=== PATIENT | female | born 1940 | race African-American/Black ===

== ENCOUNTER → 2018-01-20 | Outpatient (REF) | payer MEDICARE, BC ==
[~2018-01-20] MED LIST: ACYCLOVIR800 MG PO; ADLT ASA LOW81 MG PO; AFEDITAB30 MG PO; ALDACTONE25 MG PO; AMARYL4 MG PO; APRESOLINE50 MG PO; CATAPRES0.2 MG PO; CLONIDINE0.1 MG PO; CLONIDINE0.1 MG/21 TD; CLONIDINE0.1 MG/24 TD; COZAAR100 MG PO; DOXAZOSIN2 M1 PO; FLUARIX QUADRIV1 INJ IM; FLULAVAL IM; FLUZONE SPLT1 M1 IM; FUROSEMIDE40 MG PO; HYDRALAZINE50 MG PO; LANTUS SOLOSTAR SC; LANTUS100 MG/ML SC; LASIX 40 MG TAB40 MG PO; LASIX 40 MG40 MG/TAB PO; LORTAB 5/3255 MG PO; LYRICA75 MG PO; MAXZIDE PO; MAXZIDE-2537.5 MG/TA; MEDDOSEPAK PO; METFORMIN500 M1 PO; METOPROL TAR100 M1 PO; METOPROL TAR100 MG PO; MIRAPEX0.5 MG PO; NIFEDICAL XL60 MG PO; NIFEDIPINE90 MG PO; POT CHLORIDE10 ME1 PO; PRAVASTATIN40 MG PO; PROCARDIA XL30 MG PO; PROCARDIA XL60 MG PO; TEMAZEPAM15 MG PO; TRAMADOL HCL50 MG PO; [UNRECOGNIZED DRUG - OTHER] SC
[2018-01-20 11:07] LABS: HEMATOCRIT 35.1 % (37.0-47.0)
[2018-01-20 11:23] LABS: ALBUMIN 3.6 g/dL (3.2-5.0); CREATININE 1.6 mg/dL (0.5-1.0); MAGNESIUM 1.7 mg/dL (1.6-2.3); POTASSIUM 3.9 mmol/l (3.5-5.1)
== END | disposition home or self-care (01) ==
LOC: LAB 09:51
PROVIDERS: ATTEND Internal Medicine
DX: N18.3 Chronic kidney disease, stage 3 (moderate) (principal); E11.22 Type 2 diabetes mellitus with diabetic chronic kidney disease; E55.9 Vitamin D deficiency, unspecified; D63.1 Anemia in chronic kidney disease

== ENCOUNTER → 2018-06-12 | Outpatient (REF) | payer MEDICARE, BC ==
[2018-06-12 10:59] LABS: HEMATOCRIT 36.8 % (37.0-47.0); HEMOGLOBIN 11.6 g/dl (12.0-16.0); IMMATURE GRANULOCYTES 0.3 % (0.0-5.0); MEAN CELL VOLUME 84.2 fL CALC (80.0-100.0); MEAN CORPUSCULAR HGB 26.5 pG CALC (26.0-32.0); MEAN CORPUSCULAR HGB CONC 31.5 g/L CALC (32.0-36.0); NEUT# 3.44 thou/uL (2.00-7.15); RED BLOOD COUNT 4.37 mill/uL (4.20-5.60); RED CELL DISTRI WIDTH 14.5 % (11.5-15.5)
[2018-06-12 11:23] LABS: ALBUMIN 3.9 g/dL (3.2-5.0); BILIRUBIN, TOTAL 0.6 mg/dL (0.0-1.4); CHOLESTEROL HDL RATIO 2.4 (<4.4 (CALC)); CREATININE 1.4 mg/dL (0.5-1.0); POTASSIUM 3.7 mmol/l (3.5-5.1); TOTAL PROTEIN 7.1 g/dL (6.3-8.2)
== END | disposition home or self-care (01) ==
LOC: LAB 10:19
PROVIDERS: ATTEND Internal Medicine Geriatric Medicine
DX: E11.9 Type 2 diabetes mellitus without complications (principal); E78.5 Hyperlipidemia, unspecified; I10 Essential (primary) hypertension

== ENCOUNTER 2022-03-26 10:05 | Day surgery (SDC) | payer MEDICARE ==
[~2022-03-26] VITALS: Ht 152.4 cm; Wt 91.6 kg
[~2022-03-26 10:05] MED LIST changes: +LEVEMIR100 UNIT; +PRAVASTATIN SOD20 MG PO; +SPIRONOLACTONE50 MG PO; +TORSEMIDE PO; +TRANDATE300 MG PO; +TRULICITY0.75 MG/0. IJ; +XALATAN0.005 % OP
[2022-03-26] MEDS ORDERED: [UNRECOGNIZED DRUG - OTHER] SC ×2 (10:29→10:31)
[2022-03-26 13:57] VITALS: BP 138/66
== END 2022-03-26 13:52 | disposition home or self-care (01) ==
LOC: ENDO 10:05 → ORM 11:00 → ENDO 11:50
PROVIDERS: ATTEND Internal Medicine Gastroenterology
PROC: 0DJD8ZZ Inspection of Lower Intestinal Tract, Via Natural or Artificial Opening Endoscopic (ICD-10-PCS; principal; 2022-03-26)
PROC: 0DB98ZX Excision of Duodenum, Via Natural or Artificial Opening Endoscopic, Diagnostic (ICD-10-PCS; 2022-03-26)
PROC: 0DB78ZX Excision of Stomach, Pylorus, Via Natural or Artificial Opening Endoscopic, Diagnostic (ICD-10-PCS; 2022-03-26)
PROC: 0DB68ZX Excision of Stomach, Via Natural or Artificial Opening Endoscopic, Diagnostic (ICD-10-PCS; 2022-03-26)
DX: D64.9 Anemia, unspecified (principal); K64.8 Other hemorrhoids; K29.50 Unspecified chronic gastritis without bleeding; K31.7 Polyp of stomach and duodenum